=== PATIENT | male | born 1995 | race Caucasian/White ===

== ENCOUNTER 2020-05-31 12:43 | Outpatient (CLI) | payer OTHER, SELFPAY ==
--- NOTE | 2020-05-31 12:56 | MR_ITS ---
WS: [id number] MRI TMJ joints without contrast. HISTORY: Unspecified cyst of jaw. Multiplanar imaging is performed to the TM joints in closed mild. As the meniscus was not in question no open-mouth imaging will be submitted. Additional heavily weighted T2 sequences to evaluate for cy st were submitted. COMPARISON: None. A marker is placed lateral to the RIGHT TM joint and mandibular condyle at the site of concern. There is no underlying mass or cysts identified. No soft tissue mass or bone cyst. There are several lymph nodes near the parotid gland and along the cervical chains but these are not close to the palpable m arker. Mild mucoperiosteal thickening in the ethmoid sinuses. Orbits and globes are negative. MR/MR TMJ wo con [id number] IMPRESSION: No cystic mass identified along the RIGHT mandibular condyle or TM joint.
== END 2020-05-31 12:44 | disposition home or self-care (01) ==
PROVIDERS: Family Provider Nurse Practitioner Family; PCP Nurse Practitioner Family; Visit Provider Nurse Practitioner Family
DX: M27.40 Unspecified cyst of jaw (principal)
CPT/HCPCS: 70336

== ENCOUNTER 2022-03-02 01:00 | Outpatient (CLI) | payer OTHER, SELFPAY | END 2022-03-02 23:00 | disposition home or self-care (01) | LOC: RAD 04-10 15:45 | PROVIDERS: Family Provider Nurse Practitioner Family; PCP Nurse Practitioner Family; Visit Provider Nurse Practitioner | DX: R50.9 Fever, unspecified (principal) | CPT/HCPCS: 87071; 87400; 87880 ==